=== PATIENT | female | born 1995 | race Hispanic/Latino ===

== ENCOUNTER 2017-07-10 11:59 | Emergency (ER) | payer MEDICAID, SELFPAY ==
[2017-07-10 12:27] LABS: #Basophils 0.1 thou/uL (0.0-0.2); #Eosinphils 0.1 thou/uL (0.0-0.7); #Lymphocytes 1.3 thou/uL (1.20-3.40); #Monocytes 0.4 thou/uL (0.11-0.59); %Basophils 0.9 % (0.0-1.0); %Eosinophils 2.4 % (0.0-10.0); %Lymphocytes 22.3 % (21.0-51.0); %Monocytes 6.3 % (0.0-10.0); %Neutrophils 68.1 % (42.0-75.0); Hemoglobin 12.5 g/dL (12.0-16.0); Mean Corpuscular HGB CONC 33.3 g/dL (32.0-36.0); Mean Corpuscular Hemoglobin 28.8 pg (27.0-31.0); Mean Corpuscular Volume 86.5 fl (81.0-99.0); Mean Platelet Volume 7.8 fL (7.4-10.4); Platelet Count 292 thou/uL (130-400); RBC Distribution Width 11.5 % (11.5-14.5); Red Blood Cell (RBC) Count 4.35 mill/uL (4.20-5.40); White Blood Cell (WBC) Count 5.8 thou/uL (4.8-10.8)
--- NOTE | 2017-07-10 14:49 | ULT ---
PELVIC ULTRASOUND: HISTORY: patient. Vaginal bleeding. Bleeding began 3 days ago. COMPARISON: None. TECHNIQUE: Transabdominal and endovaginal imaging of the pelvis is performed. Ovaries are interrogated with gra y scale, color flow, Doppler imaging, and spectral waveform analysis. FINDINGS: Uterus is retroverted. No myometrial masses. Uterus measures 3.3 x 5.2 x 6.2 cm. Homogeneous endom etrium with a diameter of 0.6 cm. No evidence of a gestational sac, yolk sac, or pole. Ovaries have a normal echotexture. The right ovary measures 3.7 x 2.0 x 2.9 cm. The left ovary markus ures 3.9 x 2.6 x 2.7 cm. There is free fluid in the pelvis. OVARIAN DOPPLER: Vascular flow to the left and right ovary. IMPRESSION: No sonographic evidence of intrauterine gestation. Differential considerations include a missed spon taneous versus an early intrauterine versus a sonographic occult ectopic . Followup ultrasound with serial beta HGCs are recommended. POS: SURINDER
[2017-07-10 15:12] LABS: Bilirubin Negative (Negative); Blood, Urine Large (Negative); Clarity CLEAR (Clear); Glucose, Urine (Dipstick) Negative (Negative); Leukocyte Negative (Negative); Nitrite Negative (Negative); Protein, Urine (Dipstick) Negative (Neg-Trace); Specific Gravity, Urine 1.016 (1.002-1.036); pH, Urine 7.5 (5.0-9.0)
[2017-07-10 15:15] LABS: Bacteria/HPF None Seen HPF (None Seen); Hyaline Casts/LPF 0-3 HYALINE CAST LPF (0-3 Hyaline); Pathc Cast-AUWi Flag 0.14 (0-2.49); RBC/HPF GREATER THAN 50-TNTC HPF (0-3); Squamous Epithelial 0-3 HPF (0-3); WBC/HPF 0-3 HPF (0-3)
[2017-07-12 04:21] LABS: Chlamydia by PCR DETECTED (NotDetected); GC by PCR Not Detected (NotDetected)
== END 2017-07-10 15:35 | disposition home or self-care (01) ==
LOC: ERS 11:59
DX: O20.9 Hemorrhage in early pregnancy, unspecified (principal); Z3A.01 Less than 8 weeks gestation of pregnancy
CPT/HCPCS: 36415; 76856; 81003; 81015; 84702; 85025; 86900; 86901; 87491; 87591

== ENCOUNTER 2017-08-20 23:50 | Emergency (ER) | payer MEDICAID, OTHER ==
[2017-08-21 01:19] LABS: #Eosinphils 0.3 thou/uL (0.0-0.7); #Lymphocytes 1.6 thou/uL (1.20-3.40); #Monocytes 0.8 thou/uL (0.11-0.59); #Neutrophils 5.1 thou/uL (1.40-6.50); %Basophils 0.4 % (0.0-1.0); %Eosinophils 3.9 % (0.0-10.0); %Monocytes 10.2 % (0.0-10.0); %Neutrophils 65.5 % (42.0-75.0); Hemoglobin 13.1 g/dL (12.0-16.0); Mean Corpuscular HGB CONC 34.3 g/dL (32.0-36.0); Mean Corpuscular Hemoglobin 29.1 pg (27.0-31.0); Mean Corpuscular Volume 84.9 fL (78.0-98.0); Mean Platelet Volume 8.2 fL (7.4-10.4); Platelet Count 241 thou/uL (130-400); Red Blood Cell (RBC) Count 4.49 mill/uL (4.20-5.40); White Blood Cell (WBC) Count 7.7 thou/uL (4.8-10.8)
[2017-08-21 01:38] LABS: ALT (SGPT) 41 U/L (8-55); AST (SGOT) 42 U/L (5-34); Albumin 4.2 g/dL (3.5-5.0); Alkaline Phosphatase 79 U/L (40-150); Anion Gap 12 mmol/L (10-20); BUN (Urea Nitrogen) 15 mg/dL (7.0-18.7); Bilirubin, Total 0.2 mg/dL (0.2-1.2); CK (CPK) 96 U/L (29-168); Calc. Creatinine Clearance 0 mL/min (70-130); Calcium 9.5 mg/dL (7.8-10.44); Carbon Dioxide 27 mmol/L (22-29); Chloride 104 mmol/L (98-107); Estimated GFR-MDRD Greater than 90; Globulin 3.2 g/dL (2.4-3.5); Glucose 74 mg/dL (70-105); Lipase 20 U/L (8-78); Potassium 3.8 mmol/L (3.5-5.1); Protein, Total 7.4 g/dL (6.0-8.3); Sodium 139 mmol/L (136-145)
[2017-08-21 01:43] LABS: CKMB 0.6 ng/mL (0-6.6); Troponin I Less than 0.010 ng/mL (< 0.028)
[2017-08-21 03:15] LABS: BHCG - Serum Negative (NEGATIVE); Pregs Control Background? CLEAR/WHITE (CLR/WHITE); Pregs Control Bar Appear? YES (CONTROL BAR)
--- NOTE | 2017-08-21 09:18 | RAD ---
CHEST PA AND LATERAL: HISTORY: A 21-year-old female with a history of chest pain. FINDINGS: Heart size is normal. Lungs are clear. No confluent pneumonia, overt edema, or pleural effusion. POS: OFF
== END 2017-08-21 03:21 | disposition home or self-care (01) ==
LOC: ERS 23:50
DX: R07.89 Other chest pain (principal)
CPT/HCPCS: 36415; 71046; 80053; 82550; 82553; 83690; 84484; 84703; 85025

== ENCOUNTER 2017-09-26 14:38 | Emergency (ER) | payer OTHER ==
[2017-09-26] MEDS ORDERED: Ondansetron ODT 4 MG TAB ONE (15:10)
[2017-09-26 15:12] LABS: #Eosinphils 0.1 thou/uL (0.0-0.7); #Lymphocytes 1.5 thou/uL (1.20-3.40); #Monocytes 0.3 thou/uL (0.11-0.59); #Neutrophils 4.7 thou/uL (1.40-6.50); %Basophils 0.1 % (0.0-1.0); %Eosinophils 1.7 % (0.0-10.0); %Lymphocytes 22.2 % (21.0-51.0); %Monocytes 4.8 % (0.0-10.0); %Neutrophils 71.2 % (42.0-75.0); Hemoglobin 14.1 g/dL (12.0-16.0); Mean Corpuscular HGB CONC 34.5 g/dL (32.0-36.0); Mean Corpuscular Hemoglobin 29.3 pg (27.0-31.0); Mean Corpuscular Volume 84.9 fL (78.0-98.0); Mean Platelet Volume 8.7 fL (7.4-10.4); Platelet Count 250 thou/uL (130-400); RBC Distribution Width 12.3 % (11.5-14.5); Red Blood Cell (RBC) Count 4.82 mill/uL (4.20-5.40); White Blood Cell (WBC) Count 6.6 thou/uL (4.8-10.8)
[2017-09-26 15:19] LABS: Bilirubin Negative (Negative); Blood, Urine Negative (Negative); Clarity CLEAR (Clear); Glucose, Urine (Dipstick) Negative (Negative); Leukocyte Trace (Negative); Nitrite Negative (Negative); Pregnancy Test - Urine (BHCG) Negative (Negative); Pregu Control Background? CLEAR/WHITE (CLR/WHITE); Pregu Control Bar Appear? YES (CONTROL BAR); Protein, Urine (Dipstick) Negative (Neg-Trace); Specific Gravity 1.028 (1.002-1.036); Specific Gravity, Urine 1.028 (1.002-1.036); Urobilinogen 0.2 mg/dL (0.2-1.0); pH, Urine 6.5 (5.0-9.0)
[2017-09-26 15:20] LABS: Bacteria/HPF None Seen HPF (None Seen); Hyaline Casts/LPF 0-3 HYALINE CAST LPF (0-3 Hyaline); Pathc Cast-AUWi Flag 0.14 (0-2.49); RBC/HPF 0-3 HPF (0-3); Squamous Epithelial 0-3 HPF (0-3); WBC/HPF 0-3 HPF (0-3)
--- NOTE | 2017-09-26 15:21 | RAD ---
TWO VIEWS CHEST: History: Chest pain. FINDINGS: The lungs are well aerated. No evidence of active intrathoracic disease seen. No evidence of effusion s, pneumonia, or pneumothorax is seen. IMPRESSION: Normal two views chest. POS: [facility]
[2017-09-26 15:42] LABS: ALT (SGPT) 23 U/L (8-55); AST (SGOT) 30 U/L (5-34); Albumin 4.8 g/dL (3.5-5.0); Alkaline Phosphatase 64 U/L (40-150); Anion Gap 14 mmol/L (10-20); BUN (Urea Nitrogen) 19 mg/dL (7.0-18.7); Bilirubin, Total 0.3 mg/dL (0.2-1.2); Calc. Creatinine Clearance 0 mL/min (70-130); Calcium 9.8 mg/dL (7.8-10.44); Carbon Dioxide 25 mmol/L (22-29); Chloride 103 mmol/L (98-107); Estimated GFR-MDRD 66; Globulin 3.8 g/dL (2.4-3.5); Glucose 105 mg/dL (70-105); Lipase 28 U/L (8-78); Potassium 3.7 mmol/L (3.5-5.1); Protein, Total 8.6 g/dL (6.0-8.3); Sodium 138 mmol/L (136-145)
[2017-09-26 15:45] LABS: CKMB 0.8 ng/mL (0-6.6); Troponin I Less than 0.010 ng/mL (< 0.028)
[2017-09-26] MEDS ORDERED: Mag-Al 1200 mg/1200 mg/30 ML UDCUP ONE (16:55)
[2017-09-26] MEDS ORDERED: Lidocaine 2% Jelly 5 ML TUBE ONE (16:55)
[2017-09-26] MEDS ORDERED: Lidocaine Viscous Sol 2% 15 ml UD Cup ONE (16:55)
== END 2017-09-26 18:03 | disposition home or self-care (01) ==
LOC: ERS 14:38
DX: F43.9 Reaction to severe stress, unspecified (principal); K82.9 Disease of gallbladder, unspecified
CPT/HCPCS: 36415; 71046; 80053; 81003; 81015; 81025; 82553; 83690; 84484; 85025; 93005; Q0162

== ENCOUNTER 2017-10-13 16:22 | Outpatient (CLI) | payer OTHER ==
[2017-10-13 17:37] LABS: #Eosinphils 0.1 thou/uL (0.0-0.7); #Lymphocytes 1.3 thou/uL (1.20-3.40); #Monocytes 0.5 thou/uL (0.11-0.59); #Neutrophils 6.6 thou/uL (1.40-6.50); %Basophils 0.1 % (0.0-1.0); %Eosinophils 0.6 % (0.0-10.0); %Lymphocytes 15.3 % (21.0-51.0); %Monocytes 5.7 % (0.0-10.0); %Neutrophils 78.4 % (42.0-75.0); Hemoglobin 13.2 g/dL (12.0-16.0); Mean Corpuscular HGB CONC 33.3 g/dL (32.0-36.0); Mean Corpuscular Hemoglobin 28.6 pg (27.0-31.0); Mean Corpuscular Volume 85.9 fL (78.0-98.0); Mean Platelet Volume 9.1 fL (7.4-10.4); Platelet Count 224 thou/uL (130-400); RBC Distribution Width 12.3 % (11.5-14.5); Red Blood Cell (RBC) Count 4.63 mill/uL (4.20-5.40); White Blood Cell (WBC) Count 8.4 thou/uL (4.8-10.8)
[2017-10-13 17:44] LABS: BHCG - Serum Negative (NEGATIVE); Pregs Control Background? CLEAR/WHITE (CLR/WHITE); Pregs Control Bar Appear? YES (CONTROL BAR)
[2017-10-13 18:01] LABS: ALT (SGPT) 35 U/L (8-55); AST (SGOT) 22 U/L (5-34); Albumin 4.7 g/dL (3.5-5.0); Alkaline Phosphatase 63 U/L (40-150); Anion Gap 9 mmol/L (10-20); BUN (Urea Nitrogen) 18 mg/dL (7.0-18.7); Bilirubin, Direct 0.2 mg/dL (0.1-0.3); Bilirubin, Total 0.5 mg/dL (0.2-1.2); Calc. Creatinine Clearance 0 mL/min (70-130); Calcium 9.5 mg/dL (7.8-10.44); Carbon Dioxide 23 mmol/L (22-29); Chloride 109 mmol/L (98-107); Estimated GFR-MDRD Greater than 90; Glucose 85 mg/dL (70-105); Potassium 3.9 mmol/L (3.5-5.1); Protein, Total 7.7 g/dL (6.0-8.3); Sodium 137 mmol/L (136-145)
== END 2017-10-13 16:23 | disposition home or self-care (01) ==
LOC: LABBT 16:22
PROVIDERS: ATTEND Surgery
DX: Z01.812 Encounter for preprocedural laboratory examination (principal); K80.80 Other cholelithiasis without obstruction
CPT/HCPCS: 80048; 80076; 84703; 85025

== ENCOUNTER 2018-12-07 06:24 | Emergency (ER) | payer OTHER ==
[2018-12-07] MEDS ORDERED: Mag-Al 1200 mg/1200 mg/30 ML UDCUP ONE (07:02)
[2018-12-07] MEDS ORDERED: Lidocaine Viscous Sol 2% 15 ml UD Cup ONE (07:02)
[2018-12-07 07:03] LABS: #Eosinphils 0.2 thou/uL (0.0-0.7); #Lymphocytes 2.1 thou/uL (1.20-3.40); #Monocytes 0.5 thou/uL (0.11-0.59); #Neutrophils 4.6 thou/uL (1.40-6.50); %Basophils 0.6 % (0.0-1.0); %Eosinophils 2.1 % (0.0-10.0); %Lymphocytes 27.9 % (21.0-51.0); %Neutrophils 62.4 % (42.0-75.0); Hemoglobin 13.6 g/dL (12.0-16.0); Mean Corpuscular HGB CONC 34.1 g/dL (32.0-36.0); Mean Corpuscular Hemoglobin 29.4 pg (27.0-31.0); Mean Corpuscular Volume 86.3 fL (78.0-98.0); Platelet Count 230 thou/uL (130-400); RBC Distribution Width 11.9 % (11.5-14.5); Red Blood Cell (RBC) Count 4.62 mill/uL (4.20-5.40); White Blood Cell (WBC) Count 7.4 thou/uL (4.8-10.8)
[2018-12-07 07:04] LABS: BHCG - Serum Negative (NEGATIVE); Pregs Control Background? CLEAR/WHITE (CLR/WHITE); Pregs Control Bar Appear? YES (CONTROL BAR)
[2018-12-07 07:09] LABS: ALT (SGPT) 17 U/L (8-55); AST (SGOT) 19 U/L (5-34); Albumin 4.6 g/dL (3.5-5.0); Alkaline Phosphatase 62 U/L (40-110); Anion Gap 12 mmol/L (10-20); BUN (Urea Nitrogen) 18 mg/dL (7.0-18.7); Bilirubin, Total 0.6 mg/dL (0.2-1.2); Calc. Creatinine Clearance 0 mL/min (70-130); Calcium 9.5 mg/dL (7.8-10.44); Carbon Dioxide 25 mmol/L (22-29); Chloride 103 mmol/L (98-107); Estimated GFR-MDRD Greater than 90; Globulin 3.5 g/dL (2.4-3.5); Glucose 96 mg/dL (70-105); Lipase 16 U/L (8-78); Potassium 3.4 mmol/L (3.5-5.1); Protein, Total 8.1 g/dL (6.0-8.3); Sodium 137 mmol/L (136-145)
[2018-12-07 08:01] LABS: Bacteria/HPF None Seen HPF (None Seen); Bilirubin Negative (Negative); Blood, Urine Negative (Negative); Clarity Clear (Clear); Glucose, Urine (Dipstick) Normal (Negative); Leukocyte 25 Leu/uL (Negative); Nitrite Negative (Negative); Protein, Urine (Dipstick) 20 mg/dL (Neg-Trace); RBC/HPF 0-3 HPF (0-3); Urobilinogen Normal mg/dL (Less than 2)
== END 2018-12-07 08:47 | disposition home or self-care (01) ==
LOC: ERS 06:24
DX: R10.13 Epigastric pain (principal); M54.5 Low back pain
CPT/HCPCS: 80053; 81003; 81015; 83690; 84703; 85025; 93005

== ENCOUNTER 2019-07-12 14:31 | Outpatient (CLI) | payer BC, OTHER ==
--- NOTE | 2019-07-12 15:51 | ULT ---
EXAM: OB ultrasound COMPARISON: None HISTORY: female. Evaluate size, dates, and anatomy. TECHNIQUE: Multiplanar grayscale and color Doppler transabdominal sonographic images are obtained. FINDINGS: There is a single intrauterine gestation in breech presentation. Cardiac Doppler demonstrat es heart tones with a heart rate of 142 beats per minute. The placenta is located posterior and fundal without evidence of placenta previa. There is a normal amount of amniotic fluid with an amniotic fluid index of 10.99 centimeters. The cervical length based on transabdominal imaging measures 4.1 centimeters. biometry measurements: BPD 4.65 cm -- 20 weeks 1 day HC 18.36 cm -- 20 weeks 6 days AC 17.51 cm -- 22 weeks 4 days FL 3.58 cm -- 21 weeks 3 days The estimated gestational age by ultrasound is 21 weeks 2 days with an JAMES on11/20/2019. Gestational a ge by the last menstrual period is 21 weeks 4 days. The estimated weight by ultrasound is 447 g (1 pound). This represents 53 percentile for weight. A 4 chambered heart is visualized. The cerebellum is not well visualized. The visualized portions of the spine, kidneys, urinary bladder, and cord insertion demonstrate a normal sonographic appearance. A three-vessel cord is not visualized. No definite anomalies are appreciated. IMPRESSION: 1. Single intrauterine gestation in breech presentation with heart tones documented. Estimated gestational age by ultrasound is 21 weeks 2 days with JAMES on 11/20/2019. 2. Estimated weight is 447 g (1 pound). 3. Amniotic fluid index is 10.99 centimeters. 4. Limited evaluation of anatomical structures, but no definitive anomaly is visualized.
== END 2019-07-12 14:32 | disposition home or self-care (01) ==
LOC: BICULT 14:31
PROVIDERS: ATTEND Family Medicine
DX: Z34.82 Encounter for supervision of other normal pregnancy, second trimester (principal); Z3A.21 21 weeks gestation of pregnancy
CPT/HCPCS: 76805

== ENCOUNTER 2019-07-16 12:12 | Inpatient (IN) | payer BC, OTHER ==
[2019-07-16 13:13] VITALS: BMI 31.6
[2019-07-16 13:20] VITALS: BP 115/69; TEMP 98.5
[2019-07-16 14:39] LABS: Amnisure Test RUPTURE DETECTED (No Rupture)
[2019-07-16 14:40] LABS: Amnisure Internal Control QC ACCEPTABLE (ACCEPTABLE)
[2019-07-16] MEDS ORDERED: hydrALAZINE 20 MG/ML VIAL SLOW IVP PRN ×2 (14:57)
[2019-07-16] MEDS ORDERED: Ondansetron PF 4 MG/2 ML Vial IVP PRN (14:57)
[2019-07-16] MEDS ORDERED: Lactated Ringer's 1,000 ML IV SCH ×2 (15:00)
[2019-07-16 15:15] LABS: Bacteria/HPF None Seen HPF (None Seen); Bilirubin Negative (Negative); Blood, Urine Negative (Negative); Clarity Clear (Clear); Glucose, Urine (Dipstick) Normal (Negative); Leukocyte Negative Leu/uL (Negative); Nitrite Negative (Negative); Protein, Urine (Dipstick) 10 mg/dL (Neg-Trace); RBC/HPF 0-3 HPF (0-3); Squamous Epithelial 0-3 HPF (0-3); WBC/HPF 0-3 HPF (0-3)
--- NOTE | 2019-07-16 15:29 | ULT ---
Ultrasound obstetrical Limited: 07/16/2019 HISTORY: 23-year-old female in second trimester of . Evaluate cervical length. TECHNIQUE: Transabdominal and translabial transducers were used to evaluate cervix. FINDINGS: Compared to ultrasound of 07/12/2019, there is a new finding of amniotic fluid filling the region dire ctly posterior to the urinary bladder. Initially, this was thought to represent amniotic fluid in the lower uterine segment, and it was also thought that a hyperechoic linear stripe caudal to that me asuring approximately 3.8 cm in length, was the intact, closed cervical canal with mucous plug. However, upon telephone conversation with Dr. Montano, it was learned that by physical examination, t he cervix was completely effaced and nonpalpable, and that the amniotic sac was bulging. In light of that information, the appearance on the current ultrasound images would then be consistent with th at clinical description. The fetus was transverse initially during the examination, but later changed to breech position, according to the electric stop installer. heart rate 145 bpm. IMPRESSION: Based on conversation with SAND POLISHER physician, the findings are consistent with a completely effaced ce rvix with bulging amniotic membrane.
--- NOTE | 2019-07-16 16:33 | HP ---
PRIMARY ON CAR SUPERVISOR: Antoine Hernandez MD CHIEF COMPLAINT: Discharge. HISTORY OF PRESENT ILLNESS: The patient is a 23-year-old, G2, P0 female with an intrauterine at 22 weeks and a day, who is reporting a watery discharge since last Monday. She says it has progressed in its quantity. She also reports that she has had some blood staining when she wiped and today noticed a small blood clot. She reports that she has been having some back pain, but denies contractions. Denies cramping. Denies urinary urgency or frequency. The patient denies any recent intercourse. She does report she had an ultrasound on Monday and was told that everything looked fine. The patient denies fever, cough, headache, chest pain, shortness of breath, nausea, vomiting, diarrhea, constipation, hip problems, knee problems, or muscle weakness. Denies urinary urgency or frequency. PAST MEDICAL HISTORY: Negative. PAST SURGICAL HISTORY: She has had a cholecystectomy. SOCIAL HISTORY: Denies drug, alcohol, or tobacco use. ALLERGIES: NO KNOWN DRUG ALLERGIES. MEDICATIONS: vitamins. OBSTETRIC LABORATORY DATA: Unavailable at time of dictation. REVIEW OF SYSTEMS: Per HPI. PHYSICAL EXAMINATION: VITAL SIGNS: Blood pressure 115/69, pulse of 80, respiratory rate of 16, temperature 98.5. GENERAL: She appears to be in no acute distress. She is alert, oriented, cooperative, and pleasant to interact with. HEAD: Normocephalic and atraumatic. LUNGS: Clear to auscultation bilaterally. HEART: Has regular rate and rhythm. ABDOMEN: Gravid, soft, nontender. EXTREMITIES: Nontender and nonedematous. GENITALIA: Vulva is without masses, lesions, or erythema. She does have quite a bit of mucousy discharge coming from the introitus. On speculum exam, the vaginal mucosa is rugated with a very little discharge. With placement of the speculum , it becomes apparent that the top of the canal is exposed membranes. Unable to identify any cervix. A digital exam was performed in attempt to identify cervix and I was unable to feel cervical length, was able to feel a cervical dilation of about 3 cm. Prior to exam, AmniSure, VPIII, and GC chlamydia were collected. Heart tones are Doppler'd that 150 beats per minute. LABORATORY STUDIES: AmniSure test is positive. Urinalysis is positive for ketones, negative for leukocyte esterase, negative for white blood cells, negative for squamous cells, negative for bacteria, negative for nitrites. GC chlamydia is pending. VPIII is negative for Trichomonas, positive for Gardnerella, and negative for Beverley. Bedside ultrasound was performed confirming dilation/ funneling of the cervix. Fetus is in romina breech presentation. There appears to be cervix on either side, but I was unable to digitally confirm that. ASSESSMENT AND PLAN: The patient is a 23-year-old female with cervical incompetence by history and likely premature rupture of membranes as evidenced by positive AmniSure test. The patient is periviable at 22 weeks gestation. She had a ultrasound performed last Monday showing the estimated weight of 446 g. A bedside ultrasound today showed a baby in romina breech presentation. Given the patient's likelihood of premature rupture of membranes, a cervical cerclage at this point is no longer an option. Therefore, we will not be attempting any further to find a cervical length as initially planned. We will be giving the patient latency antibiotics, erythromycin and ampicillin. We will also be attempting to find a facility to where to transfer her either now or at some point in the future as dictated by the accepting hospital. I have updated her primary OB, Dr. Antoine Hernandez, who is aware of these findings, and I have informed Dr. Juarez, the public housing interviewer on duty today. Again, plan at this time is latency antibiotics. I will be collecting a group B strep culture and will be working with outside facilities to make further management decisions , transfer versus discharge to home on oral antibiotics in a couple of days with a plan of transfer later to outside facility. Addendum: 07/16/[id number] Garay at [facility] [place] is accepting Ms Elliott for transfer. We are sending by ground. Transport was delayed till tomorrow until just now. Hospital is permitting ground transfer to [place]. Pt is stable. Will tx on Magnesium per receiving physician request. There they will reevaluate for possibility of cerclage placement. Job ID: [id number] [facility]
[2019-07-16 16:56] LABS: Hemoglobin 10.9 g/dL (12.0-16.0); Mean Corpuscular HGB CONC 32.9 g/dL (32.0-36.0); Mean Corpuscular Hemoglobin 28.6 pg (27.0-31.0); Mean Corpuscular Volume 86.9 fL (78.0-98.0); Mean Platelet Volume 9.1 fL (7.4-10.4); Platelet Count 227 thou/uL (130-400); RBC Distribution Width 12.1 % (11.5-14.5); Red Blood Cell (RBC) Count 3.82 mill/uL (4.20-5.40); White Blood Cell (WBC) Count 9.3 thou/uL (4.8-10.8)
[2019-07-16] MEDS ORDERED: Magnesium Sulfate 20 gm/500 ml 20 GM/500 ML BAG ONE (17:16)
[2019-07-16] MEDS ORDERED: Ampicillin 2 GM in Sodium Chloride 0.9% 100 ML IVPB SCH (18:00)
[2019-07-16] MEDS ORDERED: Erythromycin 250 MG in Sodium Chloride 0.9% 250 ML 250 ML IVPB SCH (18:00)
[2019-07-18 20:45] LABS: Chlamydia by PCR Not Detected (NotDetected); GC by PCR Not Detected (NotDetected)
== END 2019-07-16 18:35 | disposition home or self-care (01) | DRG 831 ==
LOC: L&D/OP 12:12 → L&D 16:09
PROVIDERS: ADMIT Family Medicine; ATTEND Family Medicine
DX: O42.912 Preterm premature rupture of membranes, unspecified as to length of time between rupture and onset of labor, second trimester (principal); O34.32 Maternal care for cervical incompetence, second trimester; O32.1XX0 Maternal care for breech presentation, not applicable or unspecified; Z3A.22 22 weeks gestation of pregnancy
CPT/HCPCS: 36415; 51702; 76815; 81001; 84112; 85027; 86850; 86900; 86901; 87081; 87480; 87491; 87510; 87591; 87660; 99285; J0290; J1364; J3475; J3490; J7050

== ENCOUNTER 2019-08-04 14:32 | Inpatient (IN) | payer BC, OTHER ==
[~2019-08-04 14:32] MED LIST: Iopamidol-370 76% 500 ML 1 ML ONE
[2019-08-04] MEDS ORDERED: Morphine 4 MG/ML VIAL ONE (15:19)
[2019-08-04] MEDS ORDERED: Ondansetron PF 4 MG/2 ML Vial ONE (15:19)
[2019-08-04 15:58] LABS: #Eosinphils 0.1 thou/uL (0.0-0.7); #Lymphocytes 1.6 thou/uL (1.20-3.40); #Monocytes 0.5 thou/uL (0.11-0.59); #Neutrophils 5.3 thou/uL (1.40-6.50); %Basophils 0.1 % (0.0-1.0); %Eosinophils 1.6 % (0.0-10.0); %Monocytes 6.9 % (0.0-10.0); %Neutrophils 70.4 % (42.0-75.0); Hemoglobin 10.7 g/dL (12.0-16.0); Mean Corpuscular HGB CONC 33.1 g/dL (32.0-36.0); Mean Corpuscular Hemoglobin 27.9 pg (27.0-31.0); Mean Corpuscular Volume 84.2 fL (78.0-98.0); Mean Platelet Volume 7.1 fL (7.4-10.4); Platelet Count 494 thou/uL (130-400); RBC Distribution Width 11.9 % (11.5-14.5); Red Blood Cell (RBC) Count 3.85 mill/uL (4.20-5.40); White Blood Cell (WBC) Count 7.5 thou/uL (4.8-10.8)
[2019-08-04 16:24] LABS: ALT (SGPT) 67 U/L (8-55); AST (SGOT) 40 U/L (5-34); Albumin 3.5 g/dL (3.5-5.0); Alkaline Phosphatase 122 U/L (40-110); Anion Gap 13 mmol/L (10-20); BUN (Urea Nitrogen) 17 mg/dL (7.0-18.7); Bilirubin, Total 0.2 mg/dL (0.2-1.2); Calc. Creatinine Clearance 0 mL/min (70-130); Carbon Dioxide 25 mmol/L (22-29); Chloride 104 mmol/L (98-107); Estimated GFR-MDRD Greater than 90; Globulin 3.9 g/dL (2.4-3.5); Glucose 86 mg/dL (70-105); Potassium 3.8 mmol/L (3.5-5.1); Protein, Total 7.4 g/dL (6.0-8.3); Sodium 138 mmol/L (136-145)
[2019-08-04] MEDS ORDERED: Piperacillin/Tazobactam 4.5 GM VIAL ONE (16:33)
--- NOTE | 2019-08-04 16:36 | CT ---
CT ABDOMEN AND PELVIS WITH IV CONTRAST: Date: 08-04-2019 Provided Clinical History: Right lower quadrant pain status post 07-24-2019. FINDINGS: No comparison. The visualized lung bases are free of significant opacity. There is trace bilateral pleural fluid. The solid abdominal organs demonstrate a normal CT appearance. Status post cholecystectomy. There is linear parenchymal hypodensity involving the anterior uterine myometrium. This appears esteban guous with the endometrial canal. This is also contiguous with a fluid and gas collection immediately superficial to the anterior uterus and deep to the anterior abdominal wall musculature. This fluid a nd gas collection measures at least 5 x 4.2 cm in greatest transverse dimensions and approximately 5 cm in craniocaudal dimension. There is a small amount of free fluid present within the pelvic cul-de-sac which appears simple in na ture. There is stranding of the intraperitoneal fat deep to the lower abdominal anterior abdominal wall mus culature as well as superficial to the lower anterior abdominal wall musculature. There is no evidence for bowel obstruction or free air. The appendix appears normal. The osseous structures demonstrate no concerning lytic or blastic lesions. IMPRESSION: 1. Persistent endometrial defect involving the uterine myometrium status post reported recent C-secti on. This is contiguous with a fluid and gas collection within the adjacent abdominal cavity as descri bed above. Findings suggest endometritis with parametrial abscess via myometrial rupture/dehiscence, though CT is a poor at evaluating for contiguity of the myometrium in the setting of recent . CANDLE CUTTER consultation recommended. 2. Small amount of simple appearing free pelvic fluid. POS: [facility]
[2019-08-04] MEDS ORDERED: Lorazepam 2 MG/ML VIAL ONE (16:46)
--- NOTE | 2019-08-04 17:23 | HP ---
TIME: 1645 hours. REASON FOR ADMISSION: Suspected postop pelvic abscess. This is a patient of Dr. Hernandez, but our team will cover. HISTORY OF PRESENT ILLNESS: This is a 23-year-old, G2, P0, who had a on July 23 at [facility] for extreme periviable delivery at 22 weeks. She initially presented here with ruptured membranes and was sent to [facility] for care, where she underwent a , but the baby did not survive. She now presents with complaints of fever yesterday, but none today, and just some nonspecific lower pelvic pain. I talked to the ER provider who first saw the patient. The patient is still in the ER and I will see the patient when she arrives to the third floor since I have just placed admission orders. PAST MEDICAL HISTORY: Otherwise negative. PAST SURGICAL HISTORY: at 22 weeks. ALLERGIES: NONE. MEDICATIONS: Medications given in the ER included Zosyn and vancomycin. This was given because the CT scan of the abdomen and pelvis showed a fluid collection about 5 cm about anterior to the uterus, which could be a resolving abscess. This did have a bit of some gassy changes to it. The patient's abdomen is nonsurgical per report. LABORATORY DATA: CBC with a white blood cell count of 7 and a hematocrit of 32. Her creatinine is normal at 0.7. AST is a little borderline at 40 and ALT little borderline at 67. Otherwise, everything else is normal. ASSESSMENT: This is a patient who is postop 11 days with what looks like a postop periuterine infection. I have admitted the patient for IV antibiotics. She does not seem to be surgical at this time and we will wait to see if the IV antibiotics helps resolve the infection. The incision is clean, dry and intact, and there is no erythema. PLAN: 1. I have changed antibiotics to Zosyn and Flagyl. 2. LR for IV hydration. 3. Blood cultures were sent in the ER and our team will follow. 4. Dr. Hernandez is aware and has requested that we see the patient. 5. No need for surgical intervention at this time. 6. I will see the patient when she arrives to the floor as we are awaiting her transport up here. I cannot go to the ER right now as I am working up a patient for possible transfer to another hospital (a separate patient). Job ID: [id number]
[2019-08-04] MEDS ORDERED: metroNIDAZOLE 500 MG in Premix Bag 1 BAG IVPB SCH (20:00)
[2019-08-04 20:59] VITALS: BMI 31.6
--- NOTE | 2019-08-04 20:59 | PRG ---
DATE OF SERVICE: 08/04/2019 TIME OF EVALUATION: 2029. LOCATION: Bed 332. PATIENT EXAMINATION AND HISTORY REVIEW: In brief, I evaluated the patient after she arrived to the floor. She is clinically stable, although she looks like she is having some discomfort. Her discomfort is in the abdomen. I reviewed the patient's history with her, including her 22-week rupture of membranes and at [facility]. I am unclear if they diagnosed postop metritis or not from her story and I do not have those records. I did review with her the CT findings and her plan. The plan is that we will continue IV antibiotics for 48 to 72 hours and follow her clinically. The CT scan may be repeated if there is lack of clinical improvement to see if perhaps Interventional Radiology requires drainage of the abscess. I did reassure her that the majority of cases are treated medically with resolution of symptoms and condition. I did allow the patient to eat as she is nonsurgical at this time. The incision is Pfannenstiel and it is sutured and Steri-Strips are still in place. It has only been 11 days. There is a small area in the middle that is weeping serosanguineous fluid, but it is not purulent and there is no overlying erythema. I do not feel that there is cellulitis, but there is deep space abscess according to the CT scan, so our plan is to continue IV Zosyn and Flagyl and this was reviewed with her. Job ID: [id number]
[2019-08-04] MEDS: Lactated Ringer's 1,000 ML IV SCH (21:05)
[2019-08-04] MEDS: metroNIDAZOLE 500 MG in Premix Bag 1 BAG IVPB SCH (22:23)
[2019-08-04] MEDS: Ibuprofen 800 MG TAB PO PRN (23:48)
[2019-08-04] MEDS: Piperacillin/Tazobactam 3.375 GM in Sodium Chloride 0.9% 100 ML IVPB SCH (23:48)
[2019-08-05] MEDS: Lactated Ringer's 1,000 ML IV SCH ×3 (02:12→20:32)
[2019-08-05] MEDS: Piperacillin/Tazobactam 3.375 GM in Sodium Chloride 0.9% 100 ML IVPB SCH ×4 (05:28→23:40)
[2019-08-05] MEDS: metroNIDAZOLE 500 MG in Premix Bag 1 BAG IVPB SCH ×3 (06:09→22:29)
--- NOTE | 2019-08-05 06:21 | PDOC.HOSPP ---
- Subjective Encounter Date: 08/05/19 (HD 2) Encounter Time: 06:15 Subjective: Doing better - Objective Vital Signs & Weight: Vital Signs (12 hours) Temp Pulse Resp BP Pulse Ox 08/04/19 23:45 98.6 F 94 18 127/67 08/04/19 20:45 98.1 F 63 18 116/74 98 Weight Weight 184 lb Result Diagrams: 08/04/19 15:50 08/04/19 15:50 Hospitalist ROS - Review of Systems All other systems reviewed; all pertinent +/- noted in HPI/Subj - Medication Medications: Active Medications Generic Name Dose Route Start Last Admin Trade Name Freq PRN Reason Stop Dose Admin Lactated Ringer's 1,000 mls @ 125 mls/hr 08/04/19 17:30 08/05/19 06:10 Lactated Ringer's IV 1,000 mls .Q8H TERRI Administration Piperacillin Sod/Tazobactam 100 mls @ 200 mls/hr 08/04/19 23:00 08/05/19 05: 28 Sod 3.375 gm/ Sodium Chloride IVPB 100 mls 0500,1100,1700,2300 TERRI Administration Metronidazole 500 mg/ Device 100 mls @ 100 mls/hr 08/04/19 22:00 08/05/19 06: 09 IVPB 100 mls Q8HR TERRI Administration Ibuprofen 800 mg 08/04/19 16:44 08/04/19 23:48 Motrin PO 800 mg Q8H PRN Administration Pain - Exam General Appearance: NAD, awake alert Gastrointestinal: soft, non-tender, no guarding, no rigidity Musculoskeletal: normal tone Psychiatric: normal affect, A&O x 3 Hosp A/P (1) Pelvic abscess in female Code(s): N73.9 - FEMALE PELVIC INFLAMMATORY DISEASE, UNSPECIFIED Status: Acute - Plan plan discussed w/ family, continue antibiotics Continue Zosyn and Flagyl. Afebrile. Plan is for ABX for 72 hrs. Reimage if not clinically improved.
[2019-08-05] MEDS ORDERED: Promethazine HCl 25 MG in Sodium Chloride 0.9% 50 ML IVPB SCH (08:45)
[2019-08-05] MEDS ORDERED: Meperidine HCl/PF 25 MG/ML VIAL SLOW IVP SCH ×2 (09:15→10:00)
[2019-08-05] MEDS: Prenatal Vitamin 1 TAB PO SCH (09:15)
[2019-08-05] MEDS ORDERED: Lidocaine 1% (PF) 30 ML VIAL SC SCH (10:15)
[2019-08-05] MEDS: Acetaminophen/Codeine 30-300mg Tablet PO PRN (17:36)
[2019-08-06] MEDS: Acetaminophen/Codeine 30-300mg Tablet PO PRN ×2 (00:59→15:26)
[2019-08-06] MEDS: Piperacillin/Tazobactam 3.375 GM in Sodium Chloride 0.9% 100 ML IVPB SCH ×4 (05:44→23:19)
[2019-08-06] MEDS ORDERED: Promethazine HCl 25 MG in Sodium Chloride 0.9% 50 ML IVPB SCH (07:00)
[2019-08-06] MEDS ORDERED: Meperidine HCl/PF 25 MG/ML VIAL SLOW IVP SCH (07:00)
[2019-08-06] MEDS ORDERED: Promethazine HCl 25 MG/ML VIAL IM SCH (07:00)
[2019-08-06] MEDS: metroNIDAZOLE 500 MG in Premix Bag 1 BAG IVPB SCH ×3 (07:11→21:40)
--- NOTE | 2019-08-06 07:55 | PRG ---
DATE OF SERVICE: 08/06/2019 SUBJECTIVE: The patient is on hospital day beginning of hospital day 3 for admittance postoperatively for intra-abdominal pelvic abscess and has been placed on Zosyn and Flagyl. She is postop day 13 for a primary and [place] [facility] after being ruptured for a week at 22 weeks delivering at 32. Yesterday morning, when I came to evaluate the patient. The patient had copious amount of fluid coming from her incision that is beginning to look purulent. A decision was made to pack it yesterday. When I came to pack the incision, the incision was also just spontaneously bleeding. With heavy packing and a pressure dressing, the bleeding seems to have abated after removing the pressure dressing last night. She did not seem to have any more significant bleeding. This morning, the patient reports that she is doing well, has been able to get up to go to the bathroom. She does not notice a significant change in her pain yet. OBJECTIVE: VITAL SIGNS: Most recent vital signs blood pressure is 111/75, temperature is 98.0, pulse is 60, respiratory rate is 16, saturating 98% on room air. GENERAL: This morning she appears to be very tender still in the abdomen. I was able to remove the packing, but with some difficulty on the patient's part. I do not see significant amount of spontaneous bleeding like we had yesterday. The plan at this time is to medicate the patient once again for the packing portion. Yesterday, she required 75 mg of Demerol and 25 mg of Phenergan before she has significant pain coverage. In addition, we used local. When she is medicated this morning, we will be replacing the packing and re-evaluate tomorrow. Plan at this time is for the patient to receive IV antibiotics for 2 to 3 days, at which time hopefully her wound will feel healed enough that she or her can pack without much pain at home. Job ID: [id number]
[2019-08-06] MEDS: Lactated Ringer's 1,000 ML IV SCH ×3 (08:03→17:52)
[2019-08-06] MEDS: Prenatal Vitamin 1 TAB PO SCH (09:13)
[2019-08-06] MEDS: Ibuprofen 800 MG TAB PO PRN (15:26)
[2019-08-07] MEDS: Lactated Ringer's 1,000 ML IV SCH ×2 (02:24→08:49)
[2019-08-07] MEDS: Piperacillin/Tazobactam 3.375 GM in Sodium Chloride 0.9% 100 ML IVPB SCH ×2 (05:26→10:40)
[2019-08-07] MEDS: metroNIDAZOLE 500 MG in Premix Bag 1 BAG IVPB SCH ×2 (06:13→13:29)
--- NOTE | 2019-08-07 07:15 | PDOC.PP ---
Post Progress Note Post Day #: [id number] Subjective: Resting, comfortable. Will not allow wound review at this time. PO intake tolerated: yes Flatus: yes Ambulation: yes Vital Signs (12 hours) Temp Pulse Resp BP Pulse Ox 08/07/19 04:45 98.0 F 60 18 114/72 95 08/07/19 00:00 97.9 F 55 L 16 129/76 98 08/06/19 20:15 96.7 F L 76 16 111/67 97 Weight Weight 83.461 kg - Physical Examination General: NAD Respiratory: non-labored breathing Abdominal: no distention Deviation from normal: bloody discharge on wound dressing Neurological: no gross focal deficits Psychiatric: normal affect Result Diagrams: 08/04/19 15:50 08/04/19 15:50 Additional Labs: Post Labs Blood Type O POSITIVE 08/04/19 15:50 - Assessment/Plan Zosyn/Flagyl #3 Will premedicate w/ T#3 and do wound review in 1-2 hrs, will discuss with Dr. Montano who is coming on this AM
[2019-08-07] MEDS: Ibuprofen 800 MG TAB PO PRN (07:17)
[2019-08-07] MEDS: Prenatal Vitamin 1 TAB PO SCH (07:17)
[2019-08-07] MEDS: Acetaminophen/Codeine 30-300mg Tablet PO PRN (07:17)
[2019-08-07 12:05] VITALS: BP 119/66; TEMP 98.1
--- NOTE | 2019-08-08 07:44 | DIS ---
DATE OF ADMISSION: 08/04/2019 DATE OF DISCHARGE: 08/07/2019 ADMITTING DIAGNOSES: 1. Suspected postoperative pelvic abscess. 2. Status post . DISCHARGE DIAGNOSES: 1. Suspected postoperative pelvic abscess. 2. Status post . PROCEDURE: IV antibiotics. CONSULTATIONS: None. HOSPITAL COURSE: The patient is a 23-year-old G1, P0 female, about 11 days out from time of admission for a primary at 23 weeks gestation at [facility] due to complications. The patient presented to the emergency room with fever and abdominal pain. On her evaluation, CT scan was performed and noted to have a 5 cm fluid collection anterior to the uterus and was believed to have a postoperative abscess. The patient was started on Zosyn and Flagyl. Over the course of three days, the patient had improvement of her symptoms and reported that her pain had resolved. On hospital day 2, the patient on evaluation was noted to have serous fluid streaming from her incision with some purulence on the tail end converting to bleeding. The wound was explored and found to have two pockets. Both of these pockets were packed. By hospital day 4, the patient was tolerating packing by her . Bleeding had resolved and the sites looked healthy. With clinical improvement, decision was made to discharge the patient home on Bactrim and Flagyl for the following 12 days. Vital signs at time of discharge, blood pressure is 119/66, temperature 98.1, pulse of 50, respiratory rate of 18, and saturating 99% on room air. In general, she appears to be in no acute distress. She is alert, oriented, cooperative, and pleasant to interact with. Head is normocephalic and atraumatic. The incision is soft with healthy-appearing tissue in the open portions of the incision, which primarily make up parts of the right half of the incision. The patient was discharged home on Bactrim and Flagyl. She has about 10 Tylenol No. 3 she has been sent home with also to be taken with dressing changes. The patient has been given instructions to follow up with her primary OB, Dr. Antoine Hernandez, who had been seeing her for care prior to her complications in the next week or so. Job ID: [id number]
== END 2019-08-07 14:55 | disposition home or self-care (01) | DRG 776 ==
LOC: ERS 14:32 → 3SW 16:45
PROVIDERS: ADMIT Obstetrics & Gynecology; ATTEND Obstetrics & Gynecology
DX: O86.03 Infection of obstetric surgical wound, organ and space site (principal); Z90.49 Acquired absence of other specified parts of digestive tract
CPT/HCPCS: 36415; 74177; 80053; 83605; 85025; 86850; 86900; 86901; 87040; J2060; J2175; J2270; J2405; J2543; J2550; J3370; J3490; J7030; Q9967

== ENCOUNTER 2024-11-01 11:12 | Outpatient (CLI) | payer BC | END 2024-11-01 11:13 | disposition home or self-care (01) | LOC: ULT 11:12 | PROVIDERS: ATTEND Student in an Organized Health Care Education/Training Program | DX: R74.8 Abnormal levels of other serum enzymes (principal); K76.0 Fatty (change of) liver, not elsewhere classified | CPT/HCPCS: 76705 ==